=== PATIENT | male | born 1980 | race African-American/Black ===

== ENCOUNTER 2022-06-30 22:03 | Inpatient (IN) ==
[2022-06-30] MEDS ORDERED: ACETAMINOPHEN 500 MG TABLET ONE (22:22)
[2022-06-30] MEDS ORDERED: ACETAMINOPHEN 500 MG TABLET PO STA (22:27)
[2022-06-30] MEDS ORDERED: SODIUM CHLORIDE 0.9% 500 ML IV STA (22:44)
[2022-06-30 23:38] LABS: Basophils % 0.4 % (0.0-0.8); Eosinophils # 0.1 10*3/uL (0.0-0.87); Eosinophils % 1.3 % (0.00-10.9); Hematocrit 42.7 VOL% (42.0-52.0); Hemoglobin 14.7 GM/DL (14.0-18.0); Immature Granulocytes % 0.4 %; Immature Granulocytes Absolute 0.04 #; Lymphocytes % 10.3 % (21.2-54.2); Mean Corpuscular HGB Conc 34.4 GM/DL (32-36); Mean Corpuscular Volume 92.8 FL (87-102); Mean Platelet Volume 10.3 FL (9.6-12.0); Monocytes # 0.7 10*3/uL (0.11-0.8); Monocytes % 7.7 % (1.7-12.7); Neutrophils % 79.9 % (38.7-73.9); Platelet Count 240 T/CUMM (130-400); White Blood Count 9.34 T/CUMM (4-12)
[2022-07-01] LABS: Albumin 3.8 G/DL (3.4-5.0); Bilirubin,Total 0.8 MG/DL (0.20-1.00); Calcium 8.8 MG/DL (8.5-10.1); Osmolality,Calculated 268.2 MOS/KG (273-304); Potassium 3.7 MMOL/L (3.5-5.1); Total Protein 7.8 G/DL (6.4-8.2)
[2022-07-01] MEDS ORDERED: PIPERACILLIN/TAZOBACTAM 3,375 MG in SODIUM CHLORIDE 0.9% 100 ML IV STA
[2022-07-01 00:02] LABS: Mucus,Urine Few /LPF (Occasional); RBC,Urine 1 /HPF (0-4); Urine Appearance Clear (Clear); Urine Color Yellow (Yellow); Urine pH 5.5 (4.5-8.0)
[2022-07-01 00:03] LABS: Bilirubin,Urine Small mg/dL (Negative); Blood, Urine Moderate mg/dL (Negative); Glucose,Urine (UA) Negative (Negative); Ketones,Urine Trace mg/dL (Negative); Nitrite,Urine Negative (Negative); Protein,Urine >=300 mg/dL (Negative); Urine Specific Gravity >= 1.030 (1.001-1.035)
[2022-07-01] MEDS ORDERED: VANCOMYCIN INJ 1,000 MG in SODIUM CHLORIDE 0.9% 250 ML IV STA (00:33)
[2022-07-01] MEDS ORDERED: guaiFENesin/DM ER 600-30 MG TABLET PO PRN (00:39)
[2022-07-01] MEDS ORDERED: ZALEPLON 5 MG CAPSULE PO PRN (00:39)
[2022-07-01] MEDS ORDERED: ONDANSETRON 4 MG/2 ML VIAL IV PRN (00:39)
[2022-07-01] MEDS ORDERED: NICOTINE 21 MG/24 HR PATCH TRANSDERM PRN (00:39)
[2022-07-01] MEDS ORDERED: hydrALAZINE 20 MG/1 ML VIAL IV PRN (00:39)
[2022-07-01] MEDS ORDERED: MORPHINE 2 MG/1 ML SYRINGE IV PRN (00:39)
[2022-07-01] MEDS ORDERED: diphenhydrAMINE CAP 25 MG CAPSULE PO PRN (00:39)
[2022-07-01] MEDS ORDERED: SODIUM CHLORIDE 0.9% 2,000 ML IV STA (00:47)
[2022-07-01] MEDS: AZITHROMYCIN INJ 500 MG in SODIUM CHLORIDE 0.9% 250 ML IV SCH (01:45)
[2022-07-01] MEDS: ALBUTEROL/IPRATROPIUM 3 ML NEB RESP TX SCH ×4 (01:55→19:30)
[2022-07-01] MEDS: ACETAMINOPHEN 325 MG TABLET PO PRN ×3 (02:15→19:38)
[2022-07-01] MEDS: SODIUM CHLORIDE 0.9% 1,000 ML IV SCH (03:27)
[2022-07-01 04:37] LABS: Basophils % 0.4 % (0.0-0.8); Eosinophils # 0.1 10*3/uL (0.0-0.87); Eosinophils % 1.5 % (0.00-10.9); Hematocrit 33.8 VOL% (42.0-52.0); Hemoglobin 11.6 GM/DL (14.0-18.0); Immature Granulocytes % 0.6 %; Immature Granulocytes Absolute 0.05 #; Lymphocytes # 1.1 10*3/uL (1.4-4.0); Lymphocytes % 12.5 % (21.2-54.2); Mean Corpuscular HGB Conc 34.3 GM/DL (32-36); Mean Corpuscular Volume 92.3 FL (87-102); Mean Platelet Volume 9.6 FL (9.6-12.0); Monocytes # 0.7 10*3/uL (0.11-0.8); Monocytes % 7.7 % (1.7-12.7); Neutrophils % 77.3 % (38.7-73.9); Platelet Count 197 T/CUMM (130-400); Red Blood Count 3.66 MC/CUMM (3.8-5.5); White Blood Count 9.09 T/CUMM (4-12)
[2022-07-01 04:54] LABS: Calcium 7.1 MG/DL (8.5-10.1); Osmolality,Calculated 273.7 MOS/KG (273-304); Potassium 3.3 MMOL/L (3.5-5.1)
[2022-07-01 05:26] LABS: HIV Antigen/Antibody Result Nonreactive (Nonreactive)
[2022-07-01] MEDS ORDERED: PIPERACILLIN/TAZOBACTAM 3,375 MG in SODIUM CHLORIDE 0.9% 100 ML IV SCH (08:00)
[2022-07-01] MEDS ORDERED: PANTOPRAZOLE 40 MG TABLET PO SCH (09:00)
[2022-07-01] MEDS: HEPARIN 5,000 UNIT/1 ML VIAL SUBCUT SCH ×2 (09:19→20:28)
[2022-07-01 09:20] LABS: Sedimentation Rate-Westergren 69 MM/HR (0-15)
[2022-07-01] MEDS: DOCUSATE SODIUM 100 MG CAPSULE PO SCH ×2 (10:03→20:28)
[2022-07-01] MEDS ORDERED: POTASSIUM CHLORIDE 20 MEQ TABLET PO ONE (11:00)
[2022-07-01 11:36] LABS: Folate 15.3 NG/ML (5.38-24.0)
[2022-07-01] MEDS ORDERED: VANCOMYCIN INJ 1,500 MG in SODIUM CHLORIDE 0.9% 500 ML IV SCH (12:00)
[2022-07-01] MEDS: cefTRIAXone 1,000 MG in SODIUM CHLORIDE 0.9% 100 ML IV SCH (13:00)
[2022-07-02] MEDS: ALBUTEROL/IPRATROPIUM 3 ML NEB RESP TX SCH ×4 (00:22→19:00)
[2022-07-02] MEDS: SODIUM CHLORIDE 0.9% 1,000 ML IV SCH ×3 (01:44→17:39)
[2022-07-02] MEDS: ACETAMINOPHEN 325 MG TABLET PO PRN ×2 (03:47→17:40)
[2022-07-02 06:26] LABS: Basophils % 0.6 % (0.0-0.8); Eosinophils # 0.2 10*3/uL (0.0-0.87); Eosinophils % 2.6 % (0.00-10.9); Hematocrit 33.1 VOL% (42.0-52.0); Hemoglobin 11.6 GM/DL (14.0-18.0); Immature Granulocytes % 0.7 %; Immature Granulocytes Absolute 0.05 #; Lymphocytes % 13.2 % (21.2-54.2); Mean Corpuscular Volume 91.2 FL (87-102); Monocytes # 0.5 10*3/uL (0.11-0.8); Monocytes % 7.2 % (1.7-12.7); Neutrophils % 75.7 % (38.7-73.9); Platelet Count 228 T/CUMM (130-400); Red Blood Count 3.63 MC/CUMM (3.8-5.5); White Blood Count 7.26 T/CUMM (4-12)
[2022-07-02 06:54] LABS: Calcium 8.1 MG/DL (8.5-10.1); Potassium 3.2 MMOL/L (3.5-5.1)
[2022-07-02] MEDS: DOCUSATE SODIUM 100 MG CAPSULE PO SCH ×2 (09:49→20:56)
[2022-07-02] MEDS: CYANOCOBALAMIN 500 MCG TABLET PO SCH (09:50)
[2022-07-02] MEDS: PANTOPRAZOLE 40 MG TABLET PO SCH ×2 (09:50→20:56)
[2022-07-02] MEDS: AZITHROMYCIN INJ 500 MG in SODIUM CHLORIDE 0.9% 250 ML IV SCH (09:50)
[2022-07-02] MEDS: HEPARIN 5,000 UNIT/1 ML VIAL SUBCUT SCH ×2 (11:33→20:53)
[2022-07-02] MEDS: cefTRIAXone 1,000 MG in SODIUM CHLORIDE 0.9% 100 ML IV SCH (15:13)
[2022-07-02] MEDS ORDERED: POTASSIUM CHLORIDE 20 MEQ TABLET PO ONE (17:00)
[2022-07-03] MEDS: ALBUTEROL/IPRATROPIUM 3 ML NEB RESP TX SCH ×4 (00:10→19:36)
[2022-07-03] MEDS: SODIUM CHLORIDE 0.9% 1,000 ML IV SCH ×2 (01:44→15:35)
[2022-07-03] MEDS: ACETAMINOPHEN 325 MG TABLET PO PRN (04:16)
[2022-07-03 05:08] LABS: Basophils % 0.5 % (0.0-0.8); Eosinophils # 0.2 10*3/uL (0.0-0.87); Eosinophils % 3.6 % (0.00-10.9); Hematocrit 33.6 VOL% (42.0-52.0); Hemoglobin 11.6 GM/DL (14.0-18.0); Immature Granulocytes % 0.8 %; Immature Granulocytes Absolute 0.05 #; Lymphocytes # 1.2 10*3/uL (1.4-4.0); Lymphocytes % 18.4 % (21.2-54.2); Mean Corpuscular HGB Conc 34.5 GM/DL (32-36); Mean Corpuscular Volume 91.1 FL (87-102); Mean Platelet Volume 9.9 FL (9.6-12.0); Monocytes # 0.5 10*3/uL (0.11-0.8); Monocytes % 7.3 % (1.7-12.7); Neutrophils % 69.4 % (38.7-73.9); Platelet Count 259 T/CUMM (130-400); Red Blood Count 3.69 MC/CUMM (3.8-5.5); Red Cell Distribution Width 14.9 % (9.3-17.3); White Blood Count 6.62 T/CUMM (4-12)
[2022-07-03 05:34] LABS: Albumin 2.7 G/DL (3.4-5.0); Bilirubin,Total 0.6 MG/DL (0.20-1.00); Osmolality,Calculated 273.7 MOS/KG (273-304); Total Protein 6.7 G/DL (6.4-8.2)
[2022-07-03] MEDS: PANTOPRAZOLE 40 MG TABLET PO SCH ×2 (09:47→20:50)
[2022-07-03] MEDS: CYANOCOBALAMIN 500 MCG TABLET PO SCH (09:47)
[2022-07-03] MEDS: cefTRIAXone 1,000 MG in SODIUM CHLORIDE 0.9% 100 ML IV SCH (12:11)
[2022-07-03] MEDS: HEPARIN 5,000 UNIT/1 ML VIAL SUBCUT SCH ×2 (12:11→20:50)
[2022-07-03] MEDS: DOCUSATE SODIUM 100 MG CAPSULE PO SCH ×2 (12:11→20:50)
[2022-07-03] MEDS: AZITHROMYCIN 250 MG TABLET PO SCH (15:15)
[2022-07-04] MEDS: ALBUTEROL/IPRATROPIUM 3 ML NEB RESP TX SCH ×2 (00:30→07:07)
[2022-07-04 08:08] VITALS: BP 125/80
[2022-07-04] MEDS: AZITHROMYCIN 250 MG TABLET PO SCH (09:07)
[2022-07-04] MEDS: CYANOCOBALAMIN 500 MCG TABLET PO SCH (09:08)
[2022-07-04] MEDS: PANTOPRAZOLE 40 MG TABLET PO SCH (09:08)
[2022-07-04] MEDS: HEPARIN 5,000 UNIT/1 ML VIAL SUBCUT SCH (13:04)
[2022-07-04] MEDS: DOCUSATE SODIUM 100 MG CAPSULE PO SCH (13:04)
[2022-07-04] MEDS: cefTRIAXone 1,000 MG in SODIUM CHLORIDE 0.9% 100 ML IV SCH (13:04)
== END 2022-07-04 13:04 | disposition home or self-care (01) | DRG 195 ==
LOC: N.ED 22:03 → SUATTDRO 07-01 00:39 → N.EDINP 07-01 00:39 → N.2E 07-01 08:35
PROVIDERS: ADMIT Internal Medicine; ATTEND Internal Medicine